=== PATIENT | female | born 1970 | race Caucasian/White ===

== ENCOUNTER 2017-10-10 15:07 | Emergency (ER) | payer OTHER ==
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
[2017-10-10] MEDS ORDERED: ISOVUE-370 76%-LOCM 1 ML ONE (17:21)
== END 2017-10-10 17:32 | disposition home or self-care (01) ==
LOC: ERS 15:07
DX: S22.22XA Fracture of body of sternum, initial encounter for closed fracture (principal); E78.5 Hyperlipidemia, unspecified; J45.909 Unspecified asthma, uncomplicated; F41.9 Anxiety disorder, unspecified; Z79.899 Other long term (current) drug therapy; Z79.84 Long term (current) use of oral hypoglycemic drugs; V43.52XA Car driver injured in collision with other type car in traffic accident, initial encounter
CPT/HCPCS: 71260; 74177

== ENCOUNTER 2017-10-28 15:17 | Emergency (ER) | payer OTHER ==
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
== END 2017-10-28 16:48 | disposition home or self-care (01) ==
LOC: SCSER 15:17
DX: S50.12XA Contusion of left forearm, initial encounter (principal); S50.852A Superficial foreign body of left forearm, initial encounter; R51 Headache; E03.9 Hypothyroidism, unspecified; E78.5 Hyperlipidemia, unspecified; J45.909 Unspecified asthma, uncomplicated; F41.9 Anxiety disorder, unspecified; Z79.899 Other long term (current) drug therapy; V89.2XXA Person injured in unspecified motor-vehicle accident, traffic, initial encounter
CPT/HCPCS: 70450

== ENCOUNTER 2018-10-22 10:43 | Outpatient (CLI) | payer OTHER ==
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
== END 2018-10-22 10:44 | disposition home or self-care (01) ==
LOC: BICRAD 10:43
PROVIDERS: ATTEND Specialist
DX: S49.91XA Unspecified injury of right shoulder and upper arm, initial encounter (principal)

== ENCOUNTER 2018-12-18 10:05 | Outpatient (CLI) | payer OTHER ==
--- NOTE | 2018-12-18 13:04 | MRI ---
MRI RIGHT SHOULDER: DATE: 12/18/2018. PROVIDED CLINICAL HISTORY: Right shoulder pain. FINDINGS: The components of the rotator cuff demonstrate an intact MRI appearance. The long-head biceps tendon appears intact and normally located. The glenoid labrum and glenohumeral articular cartilage are suboptimally evaluated in the absence of joint distention but demonstrate an unremarkable MR appearance. The amount of fluid within the gleno humeral joint is physiologic. There is a physiologic amount of subacromial subdeltoid bursal fluid. Acromioclavicular joint osteoarthrosis is noted with prominent periarticular stress-related marrow ed pop. No focal concerning regional marrow or muscular signal abnormality. IMPRESSION: Acromioclavicular joint degenerative change with associated periarticular stress related marrow edema . POS: [facility]
== END 2018-12-18 10:06 | disposition home or self-care (01) ==
LOC: SCSMRI 10:05
PROVIDERS: ATTEND Specialist
DX: M25.511 Pain in right shoulder (principal); M19.011 Primary osteoarthritis, right shoulder; R60.0 Localized edema

== ENCOUNTER 2022-06-12 12:04 | Outpatient (CLI) | payer OTHER | END 2022-06-12 12:05 | disposition home or self-care (01) | LOC: BICMAMMO 12:04 | PROVIDERS: ATTEND Specialist | DX: Z12.31 Encounter for screening mammogram for malignant neoplasm of breast (principal); Z80.3 Family history of malignant neoplasm of breast | CPT/HCPCS: 77063; 77067 ==